=== PATIENT | male | born 1995 | race Hispanic/Latino ===

== ENCOUNTER 2023-07-05 17:16 | Emergency (ER) | payer OTHER ==
[~2023-07-05] VITALS: Ht 188 cm; Wt 121.1 kg
[2023-07-05 17:16] VITALS: TEMP 98.7
[2023-07-05] MEDS ORDERED: NS 1,000 ML IV ONE (18:35)
[2023-07-05] MEDS ORDERED: METOCLOPRAMIDE INJ 10MG/2ML VIAL IV ONE (18:35)
[2023-07-05] MEDS ORDERED: KETOROLAC 30 MG/ML 1ML VIAL IV ONE (18:35)
[2023-07-05 19:22] LABS: BASO % 0.6 % (0.0-1.0); EOS # 0.1 10^3/uL (0.0-0.5); EOS % 2.6 % (0.0-3.0); HEMATOCRIT 45.8 % (42.0-52.0); HEMOGLOBIN 15.4 g/dl (13.5-17.5); LYMPH # 1.5 10^3/uL (1.5-5.0); LYMPH % 31.9 % (24.0-44.0); MEAN CORPUSCULAR HEMOGLOBIN 28.6 pg (27.0-33.0); MEAN CORPUSCULAR HGB CONC 33.6 g/dl (32.0-36.5); MONO # 0.5 10^3/uL (0.0-0.8); MONO % 10.9 % (2.0-8.0); NEUTROPHILS # 2.5 10^3/uL (1.5-8.5); NEUTROPHILS % 53.4 % (36.0-66.0); PLATELET COUNT, AUTOMATED 259 10^3/uL (150-450); RED BLOOD COUNT 5.39 10^6/uL (4.30-6.10); WHITE BLOOD COUNT 4.7 10^3/uL (4.0-10.0)
[2023-07-05 19:33] LABS: ERYTHROCYTE SEDIMENTATION RATE 9 mm/hr (0-15)
[2023-07-05 19:39] LABS: C REACTIVE PROTEIN QUANTITATIV < 0.40 MG/DL (<1.0)
[2023-07-05 19:41] LABS: BLOOD UREA NITROGEN 12 MG/DL (9-23); CALCIUM LEVEL 8.8 MG/DL (8.5-10.1); CARBON DIOXIDE LEVEL 26 MMOL/L (20-31); CHLORIDE LEVEL 108 MMOL/L (98-107); CREATININE FOR GFR 0.95 MG/DL (0.70-1.30); GLOMERULAR FILTRATION RATE > 60.0 (>60); GLUCOSE, FASTING 85 MG/DL (60-100); MAGNESIUM LEVEL 1.9 MG/DL (1.8-2.4); POTASSIUM SERUM 4.2 MMOL/L (3.5-5.1); SODIUM LEVEL 142 MMOL/L (136-145)
[2023-07-05 19:52] LABS: RSV AMPLIFICATION NEGATIVE (NEGATIVE)
[2023-07-05 20:24] VITALS: BP 118/78; O2SAT 99
== END 2023-07-05 21:24 | disposition home or self-care (01) ==
LOC: M ED 17:16
DX: R51.9 Headache, unspecified (principal); M79.10 Myalgia, unspecified site; R68.83 Chills (without fever)
CPT/HCPCS: 70450; 80048; 83735; 85025; 85652; 86140; 87631; 96374; 96375; 99284; J1885; J2765